=== PATIENT | male | born 1955 | race American Indian/Alaskan Native ===

== ENCOUNTER 2019-08-11 01:08 | Emergency (ER) | payer MEDICARE ==
[2019-08-11 01:40] LABS: Basophils # (Auto) 0.1 K/mm3 (0.0-0.1); Basophils % (Auto) 0.7 % (0.0-1.8); Eosinophils # (Auto) 0.1 K/mm3 (0.0-0.4); Eosinophils % (Auto) 1.4 % (0.0-4.3); Hemoglobin 16.2 gm/dl (11.8-15.2); Lymphocytes # (Auto) 1.8 K/mm3 (1.2-5.4); Lymphocytes % (Auto) 18.9 % (13.4-35.0); Mean Corpuscular HGB Conc 34 % (32-34); Mean Corpuscular Volume 95 fl (84-94); Monocytes # (Auto) 0.7 K/mm3 (0.0-0.8); Monocytes % (Auto) 7.2 % (0.0-7.3); Platelet Count 388 K/mm3 (140-440); Red Blood Count 4.98 M/mm3 (3.65-5.03); Red Cell Distribution Width 13.8 % (13.2-15.2)
[2019-08-11] MEDS ORDERED: HALOPERIDOL LACTATE 5 MG/1 ML INJ IM PRN (02:01)
[2019-08-11] MEDS ORDERED: LORazepam 2 MG/ML VIAL IM PRN (02:01)
[2019-08-11] MEDS ORDERED: oxyCODONE 5 MG TAB PO ONE (02:03)
--- NOTE | 2019-08-11 02:03 | Emergency Department Report ---
ED General Adult HPI - General Chief complaint: Psych Stated complaint: SUICIDAL WANT TO KILL MYSELF Time Seen by Provider: 08/11/19 01:34 Source: patient, RN notes reviewed Mode of arrival: Ambulatory Limitations: No Limitations - History of Present Illness Initial comments: This is a 64-year-old gentleman. This patient is not known to this provider p reviously. The patient has a history of hypertension, PTSD, bipolar, depression, left hip replacement and is a . He presents to the ER with complaint of suicidality. He endorses depression, and indicates that his plan to kill himself was to incite t a vice squad police officer to shoot him. He has chronic left lower extremity pain, present for decades. He does not have access to guns or firearms. He is not having hallucinations. He has not tried to overdose. -: Sudden Consistency: constant Improves with: none Worsens with: none, other (extremity pain increases with palpation and range of motion. Decreases with rest.) - Related Data Home Medications Medication Instructions Recorded Confirmed Last Taken Divalproex ER [DepaKOTE ER] 500 mg PO QDAY 08/11/19 08/11/19 Unknown Gabapentin [Neurontin] 300 mg PO Q8HR 08/11/19 08/11/19 Unknown Ibuprofen [Motrin] 800 mg PO Q8HR PRN 08/11/19 08/11/19 Unknown Sertraline [Zoloft] 100 mg PO QDAY 08/11/19 08/11/19 Unknown traZODone [Desyrel] 250 mg PO QHS 08/11/19 08/11/19 Unknown Allergies Allergy/AdvReac Type Severity Reaction Status Date / Time No Known Allergies Allergy Unverified 08/11/19 01:17 ED Review of Systems ROS: Stated complaint: SUICIDAL WANT TO KILL MYSELF Other details as noted in HPI Constitutional: denies: fever Eyes: denies: eye discharge ENT: denies: congestion Respiratory: denies: wheezing Cardiovascular: denies: syncope Genitourinary: denies: dysuria Musculoskeletal: arthralgia, myalgia Skin: denies: lesions Neurological: denies: weakness Psychiatric: depression, suicidal thoughts ED Past Medical Hx - Past Medical History Previous Medical History?: Yes Hx Hypertension: Yes Hx Psychiatric Treatment: Yes (PTSD, BIPOLAR, DEPRESSION) - Surgical History Past Surgical History?: Yes Additional Surgical History: L hip replacement, 2010. back sx, 2012. "cage on neck", 2017 - Social History Smoking Status: Current Every Day Smoker Substance Use Type: Alcohol - Medications Home Medications: Home Medications Medication Instructions Recorded Confirmed Last Taken Type Divalproex ER [DepaKOTE ER] 500 mg PO QDAY 08/11/19 08/11/19 Unknown History Gabapentin [Neurontin] 300 mg PO Q8HR 08/11/19 08/11/19 Unknown History Ibuprofen [Motrin] 800 mg PO Q8HR PRN 08/11/19 08/11/19 Unknown History Sertraline [Zoloft] 100 mg PO QDAY 08/11/19 08/11/19 Unknown History traZODone [Desyrel] 250 mg PO QHS 08/11/19 08/11/19 Unknown History ED Physical Exam - General Limitations: No Limitations General appearance: alert, anxious - Head Head exam: Present: atraumatic, normocephalic - Eye Eye exam: Present: normal appearance, EOMI, other (visual acuity intact to finger counting, color perception, reading at a close distance). Absent: nystagmus - ENT ENT exam: Present: normal exam, normal orophraynx, mucous membranes moist, normal external ear exam - Neck Neck exam: Present: normal inspection, full ROM. Absent: tenderness, meningismus - Respiratory Respiratory exam: Present: normal lung sounds bilaterally. Absent: respiratory distress - Cardiovascular Cardiovascular Exam: Present: regular rate, normal rhythm, normal heart sounds. Absent: bradycardia, tachycardia, irregular rhythm, systolic murmur, diastolic murmur, rubs, gallop - GI/Abdominal GI/Abdominal exam: Present: soft. Absent: distended, tenderness, guarding, rebound, rigid, pulsatile mass - Rectal Rectal exam: Present: deferred - Extremities Exam Extremities exam: Present: normal inspection, full ROM, other (2+ pulses noted in the bilateral upper extremities. There is no long bony tenderness. The compartments are soft. Patient walks with a cane.). Absent: calf tenderness - Back Exam Back exam: Present: normal inspection. Absent: tenderness, CVA tenderness (R), CVA tenderness (L), paraspinal tenderness, vertebral tenderness - Neurological Exam Neurological exam: Present: alert, oriented X3, normal gait, other (there is no facial droop. The tongue is midline. Extraocular movements are intact bilaterally. Speaking in full sentences. Hearing is grossly intact. 5 out of 5 strength bilateral upper and lower extremities. Sensation is intact to light touch bilateral upper and lower extremities.). Absent: motor sensory deficit - Psychiatric Psychiatric exam: Present: depressed, flat affect - Skin Skin exam: Present: warm, dry, intact, normal color. Absent: rash ED Course Vital Signs 08/11/19 08/11/19 08/11/19 01:17 03:30 08:18 Temperature 98.5 F 97.6 F Pulse Rate 106 H 81 Respiratory 18 16 16 Rate Blood Pressure 161/96 134/75 O2 Sat by Pulse 99 96 Oximetry 08/11/19 08/11/19 08/11/19 08:22 09:22 12:45 Temperature 98.3 F Pulse Rate 89 Respiratory 16 18 16 Rate Blood Pressure 102/62 O2 Sat by Pulse 100 Oximetry - Reevaluation(s) Reevaluation #1: 08/11/19 03:[address] Ember Castorena to follow up on remainder of labs if unremarkable would consider the patient medically suitable for psychiatric evaluation, consultation placement, or discharge, if recommended by psychiatry ED Medical Decision Making - Lab Data Result diagrams: 08/11/19 01:25 08/11/19 01:25 Vital Signs 08/11/19 01:17 Temperature 98.5 F Pulse Rate 106 H Respiratory 18 Rate Blood Pressure 161/96 O2 Sat by Pulse 99 Oximetry Lab Results 08/11/19 08/11/19 08/11/19 Range/Units 01:25 01:25 01:25 WBC (4.5-11.0) K/mm3 RBC (3.65-5.03) M/mm3 Hgb (11.8-15.2) gm/dl Hct (35.5-45.6) % MCV (84-94) fl MCH (28-32) pg MCHC (32-34) % RDW (13.2-15.2) % Plt Count (140-440) K/mm3 Lymph % (Auto) (13.4-35.0) % Cowley % (Auto) (0.0-7.3) % Eos % (Auto) (0.0-4.3) % Baso % (Auto) (0.0-1.8) % Lymph # (1.2-5.4) K/mm3 Cowley # (0.0-0.8) K/mm3 Eos # (0.0-0.4) K/mm3 Baso # (0.0-0.1) K/mm3 Seg Neutrophils % (40.0-70.0) % Seg Neutrophils # (1.8-7.7) K/mm3 Sodium 136 L (137-145) mmol/L Potassium 4.7 (3.6-5.0) mmol/L Chloride 99.0 (98-107) mmol/L Carbon Dioxide 21 L (22-30) mmol/L Anion Gap 21 mmol/L BUN 20 (9-20) mg/dL Creatinine 0.9 (0.8-1.5) mg/dL Estimated GFR > 60 ml/min BUN/Creatinine Ratio 22 % Glucose 95 (75-100) mg/dL Calcium 10.1 (8.4-10.2) mg/dL Total Creatine Kinase (55-170) units/L Acetaminophen < 5.0 L (10.0-30.0) ug/mL Plasma/Serum Alcohol < 0.01 (0-0.07) % 08/11/19 08/11/19 Range/Units 01:25 01:25 WBC 9.3 (4.5-11.0) K/mm3 RBC 4.98 (3.65-5.03) M/mm3 Hgb 16.2 H (11.8-15.2) gm/dl Hct 47.0 H (35.5-45.6) % MCV 95 H (84-94) fl MCH 33 H (28-32) pg MCHC 34 (32-34) % RDW 13.8 (13.2-15.2) % Plt Count 388 (140-440) K/mm3 Lymph % (Auto) 18.9 (13.4-35.0) % Cowley % (Auto) 7.2 (0.0-7.3) % Eos % (Auto) 1.4 (0.0-4.3) % Baso % (Auto) 0.7 (0.0-1.8) % Lymph # 1.8 (1.2-5.4) K/mm3 Cowley # 0.7 (0.0-0.8) K/mm3 Eos # 0.1 (0.0-0.4) K/mm3 Baso # 0.1 (0.0-0.1) K/mm3 Seg Neutrophils % 71.8 H (40.0-70.0) % Seg Neutrophils # 6.7 (1.8-7.7) K/mm3 Sodium (137-145) mmol/L Potassium (3.6-5.0) mmol/L Chloride (98-107) mmol/L Carbon Dioxide (22-30) mmol/L Anion Gap mmol/L BUN (9-20) mg/dL Creatinine (0.8-1.5) mg/dL Estimated GFR ml/min BUN/Creatinine Ratio % Glucose (75-100) mg/dL Calcium (8.4-10.2) mg/dL Total Creatine Kinase 176 H (55-170) units/L Acetaminophen (10.0-30.0) ug/mL Plasma/Serum Alcohol (0-0.07) % - Medical Decision Making Differential diagnosis, including but not limited to: Depression, dysthymia, suicidal ideation, chronic arthritic pain, chronic leg pain, medical clearance for psychiatric placement Assessment and plan: 64-year-old gentleman who is alert, oriented, clinically sober, walking with a steady gait with a cane, GCS of 15, physical exam otherwise unremarkable, with a primary complaint of depression and wanting to . He is placed on a psychiatric hold and a psychiatric consultation is requested. We have requested that his medications. Reconciled. He has chronic pain, and we will therefore give him a single dose of oxycodone for pain. Psychiatric consultation is requested. Critical care attestation.: If time is entered above; I have spent that time in minutes in the direct care of this critically ill patient, excluding procedure time. ED Disposition Clinical Impression: Bipolar disorder, Suicidal ideation Disposition: DC-01 TO HOME OR SELFCARE Is pt being admited?: No Does the pt Need Aspirin: No Condition: Stable Instructions: Bipolar Disorder (ED), Suicide Prevention for Adults (ED) Referrals: CHRISTAL RODRIGUEZ MD [Primary Care Provider] - 3-5 Days
[2019-08-11 02:11] LABS: BUN/Creatinine Ratio 22; Blood Urea Nitrogen 20 mg/dL (9-20); Calcium 10.1 mg/dL (8.4-10.2); Hemolysis Index 15
[2019-08-11 02:34] LABS: Bilirubin,Urine NEG (Negative); Blood,Urine NEG (Negative); Color,Urine Yellow (Yellow); Mucus,Urine FEW /HPF; Protein,Urine <15 mg/dL mg/dL (Negative); Urobilinogen,Urine < 2.0 mg/dL (<2.0)
[2019-08-11 02:40] LABS: Amphetamine Screen,Urine PRESUMPTIVE NEGATIVE; Benzodiazepines Screen,Urine PRESUMPTIVE NEGATIVE; Cannabinoid Screen,Urine PRESUMPTIVE NEGATIVE; Methadone Screen,Urine PRESUMPTIVE NEGATIVE; Opiate Screen,Urine PRESUMPTIVE NEGATIVE
[2019-08-11] MEDS ORDERED: IBUPROFEN 800 MG TAB PO PRN (02:48)
[2019-08-11 03:13] LABS: Cocaine Screen,Urine PRESUMPTIVE POSITIVE
--- NOTE | 2019-08-11 03:55 | Event Note ---
Date: 08/11/19 Patient valproic acid level is subtherapeutic and his salicylate level is not toxic. patient is medically clear for behavioral health evaluation and treatment.
[2019-08-11] MEDS ORDERED: GABAPENTIN 300 MG CAP PO SCH (06:00)
[2019-08-11] MEDS ORDERED: SERTRALINE 100 MG TAB PO SCH (10:00)
[2019-08-11 12:54] VITALS: BP 102/62
[2019-08-11] MEDS ORDERED: traZODone 100 MG TAB PO SCH (22:00)
== END 2019-08-11 12:23 | disposition home or self-care (01) ==
LOC: EEVIPCON 01:08 → ED 01:08
DX: F31.9 Bipolar disorder, unspecified (principal); I10 Essential (primary) hypertension; F17.200 Nicotine dependence, unspecified, uncomplicated; Z98.890 Other specified postprocedural states; Z79.899 Other long term (current) drug therapy
CPT/HCPCS: 36415; 80048; 80164; 80307; 80320; 81001; 82550; 85025; G0480